=== PATIENT | male | born 1995 | race Caucasian/White ===

== ENCOUNTER 2016-08-09 08:52 | Day surgery (SDC) | payer OTHER ==
[~2016-08-09] VITALS: Ht 177.8 cm; Wt 72.0 kg
[~2016-08-09 08:52] MED LIST: 0.9% Sodium Chloride 1,000 ML IV PRN; Sodium Chloride LOK Flush 10 mL Syringe IV PRN; fentaNYL-PF 50 mCg/mL 2 mL Inj IVPUSH PRN
[2016-08-09 09:14] VITALS: BP 115/76; PULSE 55; RESP 16; O2SAT 98
[2016-08-09 10:03] VITALS: BP 93/58; PULSE 58; RESP 16; O2SAT 96
[2016-08-09 10:13] VITALS: BP 102/59; PULSE 52; RESP 16; O2SAT 95
[2016-08-09 10:23] VITALS: BP 115/69; PULSE 55; RESP 16; O2SAT 98
--- NOTE | 2016-08-09 10:23 | ENDO ---
[address] [address] ENDOSCOPY PROCEDURE PATIENT: GARY AHUMADA : 1995 MR#: [id number] ADMIT: 08/09/2016 JOB ID: [id number] PROCEDURE: Esophagogastroduodenoscopy. INDICATION: Nausea and vomiting. ASA CLASSIFICATION: One. MALLAMPATI SCORE: One. MEDICATIONS: 1. Versed 3 mg. 2. Fentanyl 75 mcg. INSTRUMENT USED: GIF-H180-J. PROCEDURE DETAILS: After informed consent was obtained, the patient was brought to the GI suite, where he was placed on oxygen via nasal cannula and monitored with continuous pulse oximeter, telemetry, and blood pressure monitoring. A time-out was performed. Then, he was placed in a left lateral decubitus position and medications were administered for sedation. A bite block was placed. Standard esophagogastroduodenoscopy scope was then inserted through the bite block and advanced under direct visualization to the second portion of the duodenum without difficulty. FINDINGS: 1. Normal appearing duodenal bulb, first and second portion. Multiple random biopsies were obtained. 2. Normal-appearing pylorus. In the antrum and body of stomach there was mild erythema suggestive of gastritis. Multiple random biopsies were obtained. 3. Retroflexed views in the gastric body revealed a normal-appearing cardia and fundus. 4. The GE junction was regular at 42 cm. 5. Normal appearing esophagus. IMPRESSION: Mild gastritis otherwise normal exam to second portion of duodenum. RECOMMENDATIONS: 1. Await biopsy results. 2. Consider trial of PPI daily. 3. Follow up in GI clinic. COMPLICATIONS: None. ESTIMATED BLOOD LOSS: Less than 5 mL. Cc: [facility]
--- NOTE | 2016-08-10 14:13 | PATH ---
SURGICAL PATHOLOGY Attending Physician:Rosette Garber CASE STATUS: Signed Out PATIENT NAME: GARY AHUMADA PID: [id number] : 1995 DATE COLLECTED:08/09/2016 16:38 SPECIMEN: 1: Duodenum, Biopsy 2: Gastric, Biopsy CLINICAL HISTORY: 1. DUODENUM BIOPSY 2. RANDOM GASTRIC BIOPSY FINAL DIAGNOSIS: 1.DUODENUM BIOPSY: FRAGMENTS OF NORMAL-APPEARING SMALL BOWEL MUCOSA. Normal delicate mucosal villi present. Negative for significant inflammation, dysplasia and malignancy. 2.RANDOM GASTRIC BIOPSY: MUCOSAL HYPEREMIA INVOLVING FUNDIC AND ANTRAL MUCOSA WITHOUT ASSOCIATED SIGNIFICANT INFLAMMATION. Negative for evidence of Helicobacter. Negative for intestinal metaplasia. Negative for dysplasia and malignancy. ICD10 R10.9 GROSS DESCRIPTION: The specimen is received in two formalin filled containers labeled with the patient's name. 1). The specimen is sublabeled "duodenal" and consists of multiple portions of tissue which aggregate to 0.4 x 0.4 x 0.2 CM. The specimen is entirely submitted in cassette 1A. 2). The specimen is sublabeled "gastric" and consists of 2 portions of tissue which aggregate to 0.3 x 0.3 x 0.2 CM. The specimen is entirely submitted in cassette 2A. 08/09/2016 [facility] MICRO DESCRIPTION: See diagnosis. ICD-9 CODES: CPT CODES: 1: 33975 2: 07050 Electronically Signed Out Cody Tipton MD [facility] Pathology [facility] [address], [place] [address] Technical component performed at [facility], [address] [place] [address] Ave[address], [place], [address]
== END 2016-08-09 23:59 | disposition home or self-care (01) ==
LOC: END 08:52
PROVIDERS: ATTEND Internal Medicine Gastroenterology
DX: K29.70 Gastritis, unspecified, without bleeding (principal); K21.9 Gastro-esophageal reflux disease without esophagitis; R11.2 Nausea with vomiting, unspecified; R10.9 Unspecified abdominal pain; R10.13 Epigastric pain; R13.10 Dysphagia, unspecified; K59.00 Constipation, unspecified
CPT/HCPCS: 43239; 88305; G0500; J2250; J3010; J7030

== ENCOUNTER → 2016-10-05 | Day surgery (SDC) | payer OTHER ==
[~2016-10-05] VITALS: Ht 177.8 cm; Wt 72.0 kg
[~2016-10-05] MED LIST changes: -0.9% Sodium Chloride 1,000 ML IV PRN; +0.9% Sodium Chloride 1,000 ML IV SCH; +OMEP20CA11 PO
[2016-10-05 16:47] VITALS: BP 115/67; PULSE 68; RESP 15; O2SAT 100
[2016-10-05 16:57] VITALS: BP 98/75; PULSE 66; RESP 15; O2SAT 100
[2016-10-05 17:02] VITALS: BP 102/75; PULSE 65; RESP 15; O2SAT 99
--- NOTE | 2016-10-05 19:11 | ENDO ---
[address] [address] ENDOSCOPY PROCEDURE PATIENT: GARY AHUMADA : 1995 MR#: [id number] ADMIT: 10/05/2016 JOB ID: [id number] DATE: 10/05/2016 PROCEDURE: Colonoscopy. INDICATION: Diarrhea. Patient's ASA classification is one. Mallampati score is one. MEDICATIONS: Versed 4 mg, Fentanyl 50 mcg. INSTRUMENT USED: PCF H 190 L. PREPARATION QUALITY: Fair. PROCEDURE DETAILS: After informed consent was obtained, the patient was brought into the GI suite, where he was placed on oxygen via nasal cannula and monitored with continuous pulse oximeter, telemetry, and blood pressure monitoring. A time-out was performed, then he was placed in the left lateral decubitus position and medications were administered for sedation. Digital rectal exam was performed which was unremarkable. The colonoscope was then inserted into the rectum and advanced under direct visualization to the terminal ileum, which was identified by the presence of the ileocecal valve and the villous appearing mucosa of the terminal ileum. Once the terminal ileum was reached, the colonoscope was withdrawn back into the rectum as the mucosa and lumen were examined. In the rectum, retroflexion was performed. Following retroflexion, the remaining air in the rectum was suctioned and the procedure was completed. FINDINGS: 1. Normal appearing terminal ileum. Multiple random biopsies were obtained. 2. Normal appearing colon mucosa from rectum to cecum. Multiple random biopsies were obtained throughout the colon and rectum. IMPRESSION: Normal colonoscopy to terminal ileum. RECOMMENDATIONS: 1. Await biopsy results. 2. Follow up in GI Clinic. COMPLICATIONS: None. ESTIMATED BLOOD LOSS: Less than 5 mL. CC: [facility]
--- NOTE | 2016-10-08 16:04 | PATH ---
SURGICAL PATHOLOGY Attending Physician:Rosette Garber CASE STATUS: Signed Out PATIENT NAME: GARY AHUMADA PID: [id number] : 1995 DATE COLLECTED:10/05/2016 00:00 SPECIMEN: 1: Ileum, Biopsy 2: Colon, Biopsy 3: Rectum, Biopsy CLINICAL HISTORY: 1). TERMINAL ILEUM BIOPSY 2). RANDOM COLON BIOPSY 3). RECTAL BIOPSY FINAL DIAGNOSIS: 1.TERMINAL ILEUM, BIOPSY: PORTIONS OF SMALL BOWEL MUCOSA WITH NO DIAGNOSTIC ABNORMALITY. NEGATIVE FOR ACTIVE INFLAMMATION, GRANULOMAS, DYSPLASIA, AND MALIGNANCY. 2RANDOM COLON BIOPSIES: COLONIC MUCOSA WITH NO DIAGNOSTIC ABNORMALITY. Negative for active, chronic and microscopic colitis. Negative for dysplasia and malignancy. 3.RECTUM, BIOPSY: SUPERFICIAL PORTIONS OF COLORECTAL MUCOSA WITH NO DIAGNOSTIC ABNORMALITY. OCCASIONAL LYMPHOID AGGREGATES ARE PRESENT. There is no evidence of active inflammation, granulomas, dysplasia or malignancy. ICD10 K29.7 GROSS DESCRIPTION: The specimens are received in formalin, labeled with the patient's name, and sublabeled as the following: (1) TI bx; (2) random colon bx; (3) rectal bx. (1) The specimen consists of multiple fragments of kitchen glistening semitranslucent tissue (0.6 x 0.2 x 0.2 cm in aggregate). Section code: (1A) tissue. Specimen entirely submitted. (2) The specimen consists of multiple fragments of kitchen glistening semitranslucent tissue (1.0 x 0.8 x 0.3 cm in aggregate). Section code: (2A) tissue. Specimen entirely submitted. (3) The specimen consists of multiple fragments of kitchen glistening semitranslucent tissue (0.5 x 0.3 x 0.1 cm in aggregate). Section code: (3A) tissue. Specimen entirely submitted. 10/06/16 [facility] MICRO DESCRIPTION: See diagnosis. ICD-9 CODES: CPT CODES: 1: 24507 2: 46997 3: 27889 Electronically Signed Out Grace Gardner MD [facility] Pathology [facility] [address], [place] [address] Technical component performed at [facility], [address], [place], [address]
== END | disposition home or self-care (01) ==
LOC: END 00:07
PROVIDERS: ATTEND Internal Medicine Gastroenterology
DX: R19.7 Diarrhea, unspecified (principal)
CPT/HCPCS: 45380; 99153; G0500; J2250; J3010; J7030